=== PATIENT | male | born 1970 | race Caucasian/White ===

== ENCOUNTER → 2016-04-15 | Outpatient (CLI) | payer BC ==
--- NOTE | 2016-04-15 08:54 | DIAGNOSTIC IMAGING REPORT ---
KUB CLINICAL HISTORY: Nephrolithiasis. FINDINGS: 2 AP abdominal radiographs are compared to study dated 03/30/2015. There is a nonobstructed abdominal bowel gas pattern noting moderate colonic fecal retention. Cholecystectomy clips are identified in the right upper quadrant. There is unchanged appearance of a 6 mm nonobstructing calculus projecting over the lower pole of the right kidney. No calcifications are seen projecting over the left kidney or along the course of the ureters. The bony structures appear intact. IMPRESSION: 1. Unchanged appearance of a nonobstructing right renal calculus as compared to 03/30/2015. 2. No calcifications project over the left kidney or along the course of the ureters. Electronically signed by: Srikanth Buckley M.D. 04/15/2016 8:53 AM Dictated Date/Time: 04/15/2016 8:51 AM
== END | disposition home or self-care (01) ==
LOC: C.RAD 08:17
PROVIDERS: ATTEND Urology
DX: N20.0 Calculus of kidney (principal)

== ENCOUNTER → 2017-01-12 | Outpatient (CLI) | payer BC ==
[~2017-01-12] MED LIST: AMLO-110 PO; ASPCH81X PO; ATOR-26 PO; GLIP-197 PO; METFTAB PO; OXYC-57 PO
--- NOTE | 2017-01-12 11:16 | DIAGNOSTIC IMAGING REPORT ---
KUB HISTORY: Follow-up study in a patient with right-sided nephrolithiasis N20.0 [id number] COMPARISON: KUB 04/15/2016, CT 01/04/2017. FINDINGS: The bowel gas pattern is non-obstructive. There is no organomegaly. 11 x 7 mm calculus of the right kidney redemonstrated with additional smaller calculi projecting over the superior pole right kidney. There is a questioned 2 mm calculus of the inferior pole left kidney. No definite ureteral calculi. There is a surgical clip of the mid pelvis. No pneumoperitoneum or pneumatosis. No fracture. Surgical clips project over the right upper abdomen suggesting prior cholecystectomy. IMPRESSION: 1. Right-sided nephrolithiasis with unchanged appearance of an 11 x 7 mm calculus of the inferior pole right kidney. 2. Questioned 2 mm calculus of the left kidney. No ureteral calculi identified. Electronically signed by: Chuck Aldridge M.D. 01/12/2017 11:14 AM Dictated Date/Time: 01/12/2017 11:12 AM
== END | disposition home or self-care (01) ==
LOC: C.RAD 10:41
PROVIDERS: ATTEND Urology
DX: N20.0 Calculus of kidney (principal)

== ENCOUNTER → 2017-01-12 | Outpatient (CLI) | payer BC ==
--- NOTE | 2017-01-12 16:00 | DIAGNOSTIC IMAGING REPORT ---
CHEST 2 VIEWS ROUTINE HISTORY: Preop. N20.0 Calculus of kidney COMPARISON: Abdomen and pelvis CT 01/04/2017. FINDINGS: The lungs are clear. The heart is normal in size. No pleural effusions. No pneumothorax. Right cardiophrenic lobular density is consistent with the elevated liver likely within a diaphragmatic hernia. This remains unchanged compared to a 01/04/[address] IMPRESSION: No acute process. Electronically signed by: Jeffery Jasso M.D. 01/12/2017 3:58 PM Dictated Date/Time: 01/12/2017 3:56 PM
[2017-01-12 16:06] LABS: BLOOD UREA NITROGEN 16 mg/dl (7-18); CALCIUM 8.8 mg/dl (8.5-10.1); CARBON DIOXIDE 26 mmol/L (21-32); CHLORIDE 104 mmol/L (98-107); CREATININE 1.12 mg/dl (0.60-1.40); GLUCOSE 227 mg/dl (70-99); POTASSIUM 4.1 mmol/L (3.5-5.1); SODIUM 137 mmol/L (136-145)
[2017-01-12 16:08] LABS: BASO % 0.3 %; BASO ABS # 0.02 K/uL (0-0.2); COMPLETE YES; IG% 0.1 %; LYMPH % 22.8 %; LYMPH ABS # 1.53 K/uL (1.2-3.4); MEAN CORPUSCULAR HEMOGLOBIN 30.4 pg (25-34); MEAN CORPUSCULAR HGB CONC 35.4 g/dl (32-36); MEAN PLATELET VOLUME 10.4 fL (7.4-10.4); MONO % 6.8 %; PLATELET COUNT 197 K/uL (130-400); RED BLOOD COUNT 4.77 M/uL (4.7-6.1); WHITE BLOOD COUNT 6.72 K/uL (4.8-10.8)
== END | disposition home or self-care (01) ==
LOC: C.RAD 14:58
PROVIDERS: ATTEND Urology
DX: N20.0 Calculus of kidney (principal)

== ENCOUNTER → 2017-01-16 | Day surgery (SDC) | payer BC ==
[2017-01-14 08:20] VITALS: Ht 182.9 cm; Wt 115.9 kg
[~2017-01-16] VITALS: Ht 182.9 cm; Wt 115.9 kg
[~2017-01-16] MED LIST changes: +ATROPINE SULFATE 0.1 MG/ML 5ML SYR IV PRN; +CIPROFLOXACIN 400MG / D5W IV SCH; +DEXAMETHASONE SOD INJ 4 MG/ML VIAL ONE; +EpHEDrine SULFATE INJ 50 MG/ML AMP IV PRN; +FENTANYL CITRATE INJ 50 MCG/1 ML 2 ML VIAL IV PRN; +FENTANYL CITRATE INJ 50 MCG/1 ML 2 ML VIAL ONE; +LACTATED RINGER'S 1000ML 1,000 ML IV SCH; +LIDOCAINE HCL 2% 2 ML VIAL (20MG/ML) ONE; +MIDAZOLAM HCL 1 MG/ML 2ML VIAL ONE; +ONDANSETRON INJ 2 MG/ML 2 ML VIAL IV PRN; +ONDANSETRON INJ 2 MG/ML 2 ML VIAL ONE; +OXYCODONE/ACETAMINOPHEN 5-325 TAB PO PRN; +PROPOFOL IV EMULSION 10 MG/ML 20 ML VIAL IV ONE
--- NOTE | 2017-01-16 08:15 | DIAGNOSTIC IMAGING REPORT ---
KUB CLINICAL HISTORY: 46 years-old Male presenting with N20.0 Calculus of [id number]. TECHNIQUE: Single supine view of the abdomen was obtained. COMPARISON: 01/12/2017. FINDINGS: Positive small bowel gas, nonspecific. Mild stool burden in the right colon. No gross pneumoperitoneum. Cholecystectomy clips noted. A pelvic surgical clip is also noted. Allowing for bowel gas and stool, and unchanged appearance of multiple right renal calculi, the largest at the lower pole. The previously suggested left renal calculus is no longer apparent. A calcification projects over the course of the distal left ureter, which was not present on multiple additional priors and likely correlates with interval progression of the proximal left ureteral calculus demonstrated on CT from 01/04/2017. Osseous structures normal. Lung bases clear. IMPRESSION: 1. Interval progression of the left ureteral calculus, now in the distal left ureter. 2. Right nephrolithiasis. Electronically signed by: Jl Crews M.D. 01/16/2017 8:14 AM Dictated Date/Time: 01/16/2017 8:12 AM
--- NOTE | 2017-01-16 09:56 | History & Physical Bridge Note ---
H&P Re-Evaluation Bridge Note: I have examined the patient, reviewed the History & Physical and in the interval since the performance of the History & Physical I have noted the following changes of clinical significance: No changes noted
--- NOTE | 2017-01-16 10:40 | [facility] Operative Report ---
Operative Report Operative Date Jan 16, 2017. Pre-Operative Diagnosis LEFT URETERAL STONE Post-Operative Diagnosis SAME Procedure(s) Performed LEFT ESWL Surgeon LEXI Invas Tech Surgeon(s) NONE Estimated Blood Loss NONE Findings LEFT URETERAL STONE Specimens NONE Drains NONE Anesthesia GENERAL Complication(s) None Disposition Recovery Room / PACU Indications LEFT URETERAL STONE Description of Procedure Patient was identified in the preoperative holding area, appropriate informed consent was reviewed and completed and the patient was transported to the operating suite. Upon arrival appropriate preoperative antibiotics were administered and general anesthesia induced. The patient was placed in supine position and the stone was localized under fluoroscopy. A total of [_3000__] shocks were delivered to the stone. There appeared to be good fragmentation of the stone. Details of this procedure can be found on the [facility] information sheet. At the conclusion of the case the patient was extubated and taken to the PACU in stable condition. There were no complications. I attest to the content of the Intraoperative Record and any orders documented therein. Any exceptions are noted below.
--- NOTE | 2017-01-16 10:41 | Discharge Instructions-SurgCtr ---
Discharge Instructions Date of Service Jan 16, 2017. Visit Reason for Visit: Stones Discharge Discharge Diagnosis / Problem: STONES Discharge Goals Goal(s): Therapeutic intervention Medications Stopped Medications Name(s): metformin last dose 01/13/17 Activity Recommendations Activity Limitations: resume your previous activity (TAKE IT EASY TODAY) Exercise/Sports Limitations: rest today May Resume Sexual Activity: when tolerated Shower/Bathe: no limitations Driving or Machine Use: resume 1 day after discharge Anesthesia . Post Anesthesia Instructions: If you have had General Anesthesia or IV Sedation: * Do not drive today. * Resume driving when surgeon permits. * Do not make important decisions or sign legal documents today. * Call surgeon for: 1. Temperature elevations greater than 101 degrees F. 2. Uncontrollable pain. 3. Excessive bleeding. 4. Persistent nausea and vomiting. 5. Medication intolerance (nausea, vomiting or rash). * For nausea and vomiting use only clear liquids such as: tea, soda, bouillon until nausea subsides, then gradually increase diet as tolerated. * If you have any concerns or questions, call your surgeon's office. If physician is unavailable and it is an emergency, call 911 or go to the nearest emergency room. . Instructions / Follow-Up Instructions / Follow-Up MEDICATIONS: Resume previous medications unless instructed otherwise by your surgeon. Resume pre-ESWL medication except for aspirin, coumadin or other blood thinners. __ Toradol 10 mg every 6 hours for initial pain. __ Lortab 5 mg 1-2 every 4 hours for pain. _X_ Percocet 5 mg 1-2 every 4 hours for pain. __ Macrodantin 50 mg x 3 a day. __ Flomax 1 tab daily one half (1/2) hour after supper. SPECIAL CARE INSTRUCTIONS: 1. Get KUB (x-ray) _X_ day before or day of office visit and bring x-ray to office __ get x-ray 2 days before and tell office you are getting x-rays when you call for the appointment. 2. Strain ALL urine. 3. Please call if you have a fever, chills, severe pain, or constant dribbling of urine. 4. Office phone number . FOLLOW UP VISIT: Please call the office to schedule a follow-up appointment at . Diet Recommendations Home Diet: resume previous diet Procedures Procedures Performed: LEFT ESWL Pending Studies Studies pending at discharge: no Medical Emergencies . Who to Call and When: Medical Emergencies: If at any time you feel your situation is an emergency, please call 911 immediately. . Non-Emergent Contact Non-Emergency issues call your: Search Specialist, Urologist Call Non-Emergent contact if: temperature is above 101.5, your pain is not controlled . . "Provider Documentation" section prepared by Stan Pepper. . [place] Drug Monitoring Program Search Results: patient reviewed within database
[2017-01-16 11:56] VITALS: TEMP 36.4
--- NOTE | 2017-01-16 12:29 | Anesthesiology Progress Note ---
Anesthesia Post Op Note Date & Time Jan 16, 2017 at 12:28 Vital Signs Pain Intensity: 4.0 Vital Signs Past 12 Hours Date Time Temp Pulse Resp B/P (MAP) Pulse Ox O2 Delivery O2 Flow Rate FiO2 01/16/17 11:51 68 13 94 01/16/17 11:51 69 13 01/16/17 11:50 143/91 01/16/17 11:46 69 15 01/16/17 11:46 71 15 92 01/16/17 11:45 123/89 01/16/17 11:44 36.6 67 16 123/89 93 Room Air 01/16/17 11:42 69 22 92 01/16/17 11:42 69 22 01/16/17 11:41 65 22 93 01/16/17 11:41 64 22 01/16/17 11:40 131/89 01/16/17 11:36 69 18 01/16/17 11:36 71 18 95 01/16/17 11:35 138/89 01/16/17 11:32 69 20 95 01/16/17 11:32 64 20 01/16/17 11:30 136/91 01/16/17 11:27 72 19 01/16/17 11:27 73 19 96 01/16/17 11:25 142/98 01/16/17 11:22 71 21 94 01/16/17 11:22 69 21 01/16/17 11:21 142/98 01/16/17 11:20 153/105 01/16/17 11:18 154/110 01/16/17 11:17 36.6 75 12 154/110 95 Diffusion Mask 6 01/16/17 08:33 36.3 64 16 147/97 (114) 97 Room Air Notes Mental Status: alert / awake / arousable, participated in evaluation Pt Amnestic to Procedure: Yes Nausea / Vomiting: adequately controlled Pain: adequately controlled Airway Patency, RR, SpO2: stable & adequate BP & HR: stable & adequate Hydration State: stable & adequate Anesthetic Complications: no major complications apparent
[2017-01-16 12:32] VITALS: BP 139/89; PULSE 66; O2SAT 98
== END | disposition home or self-care (01) ==
LOC: X.SURG 08:04
PROVIDERS: ATTEND Urology
DX: N20.1 Calculus of ureter (principal); I10 Essential (primary) hypertension; E78.00 Pure hypercholesterolemia, unspecified; E11.9 Type 2 diabetes mellitus without complications; Z87.891 Personal history of nicotine dependence; Z79.82 Long term (current) use of aspirin; Z79.84 Long term (current) use of oral hypoglycemic drugs; Z79.899 Other long term (current) drug therapy

== ENCOUNTER → 2017-01-28 | Outpatient (CLI) | payer BC ==
[~2017-01-28] MED LIST changes: -ATROPINE SULFATE 0.1 MG/ML 5ML SYR IV PRN; -CIPROFLOXACIN 400MG / D5W IV SCH; -DEXAMETHASONE SOD INJ 4 MG/ML VIAL ONE; -EpHEDrine SULFATE INJ 50 MG/ML AMP IV PRN; -FENTANYL CITRATE INJ 50 MCG/1 ML 2 ML VIAL IV PRN; -FENTANYL CITRATE INJ 50 MCG/1 ML 2 ML VIAL ONE; -LACTATED RINGER'S 1000ML 1,000 ML IV SCH; -LIDOCAINE HCL 2% 2 ML VIAL (20MG/ML) ONE; -MIDAZOLAM HCL 1 MG/ML 2ML VIAL ONE; -ONDANSETRON INJ 2 MG/ML 2 ML VIAL IV PRN; -ONDANSETRON INJ 2 MG/ML 2 ML VIAL ONE; -OXYCODONE/ACETAMINOPHEN 5-325 TAB PO PRN; -PROPOFOL IV EMULSION 10 MG/ML 20 ML VIAL IV ONE
== END | disposition home or self-care (01) ==
LOC: C.LABSPEC 17:01
PROVIDERS: ATTEND Urology
DX: N20.0 Calculus of kidney (principal)

== ENCOUNTER → 2017-01-28 | Outpatient (CLI) | payer BC ==
--- NOTE | 2017-01-28 10:50 | DIAGNOSTIC IMAGING REPORT ---
KUB CLINICAL HISTORY: Nephrolithiasis. Postoperative examination. FINDINGS: 2 AP supine abdominal radiographs are compared to study dated 01/16/2017. A 9 mm nonobstructing calculus is again seen projecting over the right kidney. 2 additional tiny nonobstructing stones project over the right upper pole. The distal left ureteral stone seen on 01/16/2017 has resolved. No calcifications project over the left kidney or along the course of the ureters. No bowel obstruction is seen. Moderate constipation is observed. The bony structures are normal in appearance. Cholecystectomy clips are noted. IMPRESSION: 1. Nonobstructing right renal calculi are similar to previous. 2. The distal left ureteral stone seen previously has resolved. Electronically signed by: Srikanth Buckley M.D. 01/28/2017 10:48 AM Dictated Date/Time: 01/28/2017 10:47 AM
== END | disposition home or self-care (01) ==
LOC: C.RAD 10:28
PROVIDERS: ATTEND Urology
DX: N20.0 Calculus of kidney (principal)